=== PATIENT | male | born 1965 | race Caucasian/White ===

== ENCOUNTER → 2019-05-05 | Outpatient (CLI) | payer OTHER ==
[~2019-05-05] MED LIST: CARAFATE 1GM1 G PO; CIALIS5 MG PO; FLEXERIL 1010 MG/TAB PO; LOTRISONE LOTIO30 ML TP; NO HOME MEDICATIONS; NORCO 325 MG-51 TAB PO; PREDNISONE10 MG PO; PREDNISONE20 MG PO; TUSS PO; ZITHROMAX Z PA250 MG PO; ZOFRAN ODT4 MG PO
== END ==
LOC: COL.RAD 06:51
DX: S83.92XA Sprain of unspecified site of left knee, initial encounter (principal); W19.XXXA Unspecified fall, initial encounter